=== PATIENT | female | born 1945 ===

== ENCOUNTER 2021-01-09 16:52 | Emergency (ER) | payer MEDICARE, SELFPAY ==
[2021-01-10 01:33] LABS: SARS-CoV-2 PCR by NAA Not Detected (NotDetected)
== END 2021-01-09 18:46 | disposition home or self-care (01) ==
LOC: CSHERS 16:52
DX: R05 Cough (principal); R06.02 Shortness of breath; Z20.822 Contact with and (suspected) exposure to COVID-19; M19.90 Unspecified osteoarthritis, unspecified site; F17.210 Nicotine dependence, cigarettes, uncomplicated
CPT/HCPCS: 87635; 99283; U0003; U0005